=== PATIENT | female | born 1950 | race Caucasian/White ===

== ENCOUNTER 2020-06-11 15:57 | Emergency (ER) | payer OTHER, MEDICAID ==
[~2020-06-11] VITALS: Ht 162.6 cm; Wt 82.6 kg
[2020-06-11 15:57] VITALS: BP_SYST 135
[2020-06-11 16:32] LABS: BASOPHILS # (AUTO) 0.1 K/uL (0.0-0.2); BASOPHILS % (AUTO) 1.1 % (0.0-2.0); EOSINOPHILS # (AUTO) 0.1 K/uL (0.0-0.4); EOSINOPHILS % (AUTO) 1.5 % (0.0-4.0); HEMATOCRIT 45.1 % (36-48); LYMPHOCYTES % (AUTO) 20.3 % (20.5-51.5); MEAN CORPUSCULAR HEMOGLOBIN 30 pg (27-31); MEAN CORPUSCULAR HGB CONC 33 % (32-36); MEAN CORPUSCULAR VOLUME 90 fL (79.0-98.0); MONOCYTES # (AUTO) 0.5 K/uL (0.0-1.0); MONOCYTES % (AUTO) 5.1 % (1.7-9.3); PLATELET COUNT (AUTO) 230 K/uL (130-430); RED BLOOD CELL COUNT(AUTO) 5.01 MIL/uL (4.2-6.2); RED CELL DISTRIBUTION WIDTH 13.9 % (9.0-15.0); WHITE BLOOD COUNT (AUTO) 9.7 K/uL (4.8-10.8)
[2020-06-11 16:48] LABS: CALCIUM 9.1 mg/dL (8.4-11.0); CREATININE 0.8 mg/dL (0.55-1.30); POTASSIUM 3.6 mmol/L (3.5-5.1)
[2020-06-11 16:51] LABS: PROTHROMBIN TIME 10.2 SECS (9.5-12.5)
[2020-06-11 16:53] LABS: ALBUMIN 3.5 g/dL (3.4-4.8); TOTAL BILIRUBIN 0.3 mg/dL (0.0-1.0)
[2020-06-11] MEDS ORDERED: IBUP-1971 PO (17:10)
[2020-06-11] MEDS ORDERED: CLIN300C12 PO (17:10)
[2020-06-11] MEDS ORDERED: HYDR-3917 PO (17:23)
[2020-06-11] MEDS ORDERED: IBUP-1969 PO (17:23)
[2020-06-11 17:53] VITALS: BP_SYST 135
== END 2020-06-11 17:54 | disposition home or self-care (01) ==
LOC: SED 15:57
DX: K62.5 Hemorrhage of anus and rectum (principal); R10.30 Lower abdominal pain, unspecified
CPT/HCPCS: 36415; 76376; 80053; 82150; 83690; 85025; 85610-TC; 85730-TC; 86886; 86900; 86901; 93005; 99285